=== PATIENT | female | born 1990 | race Two or more races ===

== ENCOUNTER → 2019-11-28 | Emergency (ER) | payer SELFPAY ==
[~2019-11-28] VITALS: Ht 167.6 cm; Wt 149.7 kg
[~2019-11-28] MED LIST: FLUCONAZOLE 100 MG TAB PO ONE
[2019-11-28 18:35] VITALS: BP 134/92
[2019-11-28 19:11] LABS: Urine WBC None Seen /hpf (0 - 5)
[2019-11-28 19:31] LABS: Urine Bacteria NONE SEEN /hpf (None Seen); Urine Blood TRACE /uL (Negative); Urine Specific Gravity 1.041 (1.001-1.035)
[2019-11-28 19:43] LABS: Basophils # (auto) 0 10 ^3/uL (0-0.2); Basophils % (auto) 0.3 % (0.0-2.0); Eosinophils # (auto) 0 10 ^3/uL (0-0.8); Eosinophils % (auto) 0.1 % (0.0-7.0); Hematocrit 44.1 % (36.0-46.0); Lymphocytes # (auto) 0.8 10 ^3/uL (0.4-5.4); Lymphocytes % (auto) 11.2 % (10.0-50.0); Mean Corpuscular Hemoglobin 27.8 pg (28.0-32.0); Mean Corpuscular Volume 81.8 fL (80.0-100.0); Monocytes # (auto) 0.5 10 ^3/uL (0-1.3); Monocytes % (auto) 7.4 % (0.0-12.0); Platelet Count (auto) 268 10^3/uL (140-450); Red Blood Cells 5.39 10^6/uL (4.0-5.20); Red Cell Distribution Width 15.2 % (11.8-14.3); White Blood Cell 7.4 10^3/uL (4.4-10.8)
[2019-11-28 20:02] LABS: Albumin 3.4 g/dL (3.4-5.0); Calcium 8.3 mg/dL (8.5-10.1); Potassium 4.2 mmol/L (3.5-5.1)
[2019-11-28 20:04] LABS: BUN/Creatinine Ratio 13.9
== END | disposition home or self-care (01) ==
LOC: ER 17:51
DX: N93.9 Abnormal uterine and vaginal bleeding, unspecified (principal); E11.65 Type 2 diabetes mellitus with hyperglycemia; Z88.0 Allergy status to penicillin
CPT/HCPCS: 36415; 80053; 81001; 81025; 83036; 85025